=== PATIENT | female | born 1960 | race Hispanic/Latino ===

== ENCOUNTER 2025-02-16 11:51 | Emergency (ER) | payer OTHER, SELFPAY ==
[2025-02-16 11:55] VITALS: BP 200/128
[2025-02-16 11:58] VITALS: BP 186/125
[2025-02-16 12:15] VITALS: BP 172/107
[2025-02-16 12:57] LABS: % Basophils 1.8 % (0-2); % Eosinophils 2.7 % (0-6); % Immature Granulocytes 0.3 % (0-0.5); % Lymphocytes 42.5 % (20.5-51.1); % Neutrophils 37.7 % (42.2-75.2); Absolute Basophils 0.1 10^3/uL (0-0.2); Absolute Eosinophils 0.1 10^3/uL (0-0.7); Absolute Lymphocytes 1.4 10^3/uL (1.2-3.4); Absolute Monocytes 0.5 10^3/uL (0.1-0.6); Absolute Neutrophils 1.3 10^3/uL (1.4-6.5); Hematocrit 40.2 % (37.0-47.0); Hemoglobin 13.5 g/dL (12.0-16.0); Mean Corp Hgb Conc. 33.6 g/dL (33.0-37.0); Mean Corpuscular Hgb 31.4 pg (27.0-31.0); Mean Corpuscular Volume 93.5 fL (81.0-99.0); Mean Platelet Volume 9.5 fL (7.4-10.4); Nucleated Red Blood Cells % 0 %; Platelet Count 188 10^3/uL (130-400); Red Cell Dist. Width 13.6 % (11.5-14.5); White Blood Cell Count 3.3 10^3/uL (4.8-10.8)
--- NOTE | 2025-02-16 12:58 | CM ---
CM met with patient in room. Patient is established with a PCP and CM confirmed she has medical insurance. Patient stated that she has seen a neurologist and her PCP with in the last 24 hours.
CM updated ER physician.
[2025-02-16 13:00] VITALS: BP 183/111
--- NOTE | 2025-02-16 13:01 | ED.GENMED ---
History of Present Illness
General
Chief Complaint: Blood Pressure Problem
Source: patient and spouse
Time Seen by Provider: 02/16/25 12:10
Nursing documentation reviewed up to this point in time: agreed with
History of Present Illness
History of Present Illness:
64-year-old female, presents for evaluation of high blood pressure she has had chronic right hearing loss apparently went to see a neurologist yesterday noticed her blood pressure was high recommended she come here, she has mild headaches, no nausea
vomiting or chest pain, no history of high blood pressure, she sees [facility]
Past History
Past History
ED Past Medical History: Negative HTN
ED Past Surgical History: Negative Cardiac
Social History
Tobacco: Non-smoker
Alcohol: Occasional
Drug: None
Personal:
Living: with family
Employment: Employed
Review of Systems
Review of Systems
All Other Systems: Not applicable
Constitutional: Denies fever or fatigue
EENT: Reports other (Hearing loss on the right)
Neurological: Reports headache
Phy Exam
Physical Exam
Physical Exam:
Physical Exam
General: no apparent distress, not acutely ill
Neck: No jaundice
Heart: s1/s2 regular rate and rhythm, no murmur. equal radial pulses.
Lungs: no acute respiratory distress. clear bilaterally
Abdomen: Nontender
Neuro: alert and oriented. no focal neurological deficits diminished hearing on the
Skin: no rash
Psychiatric: well kept. interactive and cooperative
Extremities: no edema.
Course
Orders/Labs/Results
Orders:
Orders
02/16/25 12:10
Electrocardiogram (*1) Stat
Reason for Study: Other
Other Reason for Exam: chest pain
EKG- Treatment ONCE
02/16/25 12:35
Complete Blood Count/With Diff Urgent
Comprehensive Metabolic Panel Urgent
Magnesium Urgent
TSH Urgent
02/16/25 12:58
CT Head W/o Iv Contrast Urgent
Comment:
Reason For Exam: headache hearing loss
02/16/25 12:59
Acetaminophen [Tylenol] 650 mg PO NOW STA
02/16/25 13:00
Metoprolol [Lopressor] 25 mg PO NOW STA
Abnormal Lab Results
02/16/25
12:35
WBC 3.3 L 10^3/uL
(4.8-10.8)
MCH 31.4 H pg
(27.0-31.0)
Absolute Neuts (auto) 1.3 L 10^3/uL
(1.4-6.5)
Neutrophils % 37.7 L %
(42.2-75.2)
Monocytes % 15.0 H %
(1.7-9.3)
BUN 18 H mg/dl
(7-17)
AST 44 H U/L
(14-36)
02/16/25 12:35
02/16/25 12:35
Vital Signs
Initial and Last Documented VS:
Initial Vital Signs
Temp Pulse Resp BP Pulse Ox
97.8 F 104 16 200/128 98
02/16/25 11:55 02/16/25 11:55 02/16/25 11:55 02/16/25 11:55 02/16/25 11:55
Last Documented Vital Signs
Temp Pulse Resp BP Pulse Ox
97.8 F 97 16 180/126 96
02/16/25 11:55 02/16/25 13:30 02/16/25 13:30 02/16/25 13:23 02/16/25 13:30
MDM/Problems Addressed
Differential Diagnosis Includes:
Hypertension essential hypertension hypertensive urgency hypertensive emergency hearing loss appears to be a chronic
MDM/Problems Addressed:
Headache high blood pressure hearing loss
*Radiology
Radiology exam reviewed: radiology read reviewed
*Pulse Oximetry
Patient hypoxic: no
*EKG
Interpreted by ED Provider?: Yes
Interpretation: normal
Comparison EKG: no comparison EKG present
Heart Rate: 78
Rate: normal
Ischemia: non-specific ST changes
*Podiatry Teacher Interpretation
Rate: normal
Interpretation: normal
Heart Rate: 78
Rhythm: sinus
*Critical Care Note
Total Time (30-74mins, 75-104mins- exclusive of procedures): Not Applicable
Update Note
Update Note:
Update patient interviewed with the aid of the ship cleaner line, as did the supportive employment case manager, we able to confirm that she does have insurance does have a PCP as she is on neurology yesterday EKG noted we will check screening blood work start her on
beta-heidi check CT of the head
ED Attending Note
-
Portions of this chart may have been created with voice recognition software.� Occasional wrong word or��sound alike� substitutions may have occurred due to the inherent limitations of voice recognition software.
Discharge Plan
Departure
Patient Disposition: Home (Routine Discharge)
Date of Disposition: 02/16/25
Time of Disposition: 14:43
Patient with high blood pressure during this ER visit?: Yes
Condition: Good
Discharge Problem:
HBP (high blood pressure)
Instructions: High Blood Pressure (DC)
Prescriptions:
New
metoprolol tartrate 25 mg tablet
25 mg PO BID Qty: 60 0RF
Referrals:
Stewart Viveros MD [Active] - Next open appointment
Esperanza Curtis DO [Family Provider] -
Interventions
Interventions:
*Risk Screen - Suicide Last Done: 02/16/25 11:55
*General Assessment Last Done: 02/16/25 12:03
*Neglect/Abuse Screening Last Done: 02/16/25 11:55
ED- Cardiac Assessment Last Done: 02/16/25 12:03
ED- Neurological Assessment Last Done: 02/16/25 12:03
ED- Pulmonary Assessment Last Done: 02/16/25 12:03
Discharge Date and Time
Print Language: GERMAN
[2025-02-16 13:10] LABS: ALT (SGPT) 34 U/L (0-35); AST (SGOT) 44 U/L (14-36); Albumin 4.4 g/dl (3.5-5.0); Alkaline Phosphatase 88 U/L (38-126); Blood Urea Nitrogen 18 mg/dl (7-17); Calcium 9.6 mg/dl (8.4-10.2); Carbon Dioxide 22 mmol/L (22-30); Chloride 107 mmol/L (98-107); Glucose 92 mg/dl (70-99); Magnesium 1.9 mg/dl (1.6-2.3); Potassium 4.2 mmol/L (3.5-5.1); Sodium 137 mmol/L (135-145); Total Bilirubin 0.7 mg/dl (0.2-1.3); eGFR > 60.00
[2025-02-16] MEDS: TYLENOL 650 MG PO (13:19)
[2025-02-16] MEDS: LOPRESSOR 25 MG PO (13:19)
[2025-02-16 13:23] VITALS: BP 180/126
[2025-02-16 13:40] LABS: TSH 0.98 uIU/ml (0.47-4.68)
[2025-02-16 14:00] VITALS: BP 178/113
[2025-02-16] MEDS: CATAPRES 0.1 MG PO (14:52)
== END 2025-02-16 15:53 | disposition home or self-care (01) ==
LOC: EMR 11:51
PROVIDERS: EMERGENCY PHYSICIAN Emergency Medicine; FAMILY PHYSICIAN Family Medicine
DX: R03.0 Elevated blood-pressure reading, without diagnosis of hypertension (principal); R51.9 Headache, unspecified; H91.90 Unspecified hearing loss, unspecified ear
CPT/HCPCS: 99284; 70450; 80053; 83735; 84443; 85025; 93005